=== PATIENT | female | born 1930 | race Caucasian/White ===

== ENCOUNTER 2018-12-02 17:29 | Observation (INO) | payer OTHER ==
[~2018-12-02] VITALS: Ht 154.9 cm; Wt 85.0 kg
[~2018-12-02 17:29] MED LIST: ATEN25 PO; DILT300 PO; FOLI1 PO; LEVSOD25 PO; NITR.4SL; [UNRECOGNIZED DRUG - REMARK]
[2018-12-02 19:07] LABS: BASOPHILS ABSOLUTE AUTO 0.06 K/mm3 (0.00-0.23); BASOPHILS PERCENT AUTO 1 % (0-2); EOSINOPHILS ABSOLUTE AUTO 0.09 K/mm3 (0.00-0.68); EOSINOPHILS PERCENT AUTO 1 % (0-6); Hematocrit 39.7 % (33.0-51.0); Hemoglobin 13.6 g/dL (11.5-16.0); IMMATURE GRAN ABSOLUTE AUTO 0.05 K/mm3 (0.00-0.10); IMMATURE GRAN PERCENT AUTO 1 % (0-1); LYMPHOCYTES ABSOLUTE AUTO 2.64 K/mm3 (0.84-5.20); LYMPHOCYTES PERCENT AUTO 35 % (21-46); MONOCYTES ABSOLUTE AUTO 0.56 K/mm3 (0.16-1.47); MONOCYTES PERCENT AUTO 7 % (4-13); Mean Corpuscular HGB 33.8 pg (26.0-34.0); Mean Corpuscular HGB Conc 34.3 g/dL (31.5-36.5); Mean Corpuscular Volume 99 fL (80-100); Mean Platelet Volume 9.9 fL (9.1-12.4); NEUTROPHILS ABSOLUTE AUTO 4.14 K/mm3 (1.96-9.15); NEUTROPHILS PERCENT AUTO 55 % (41-73); Platelet Count 188 K/mm3 (150-400); RDW Coefficient Variation 12.2 % (11.7-14.2); RDW Standard Deviation 44.1 fL (35.1-46.3); Red Blood Cell Count 4.02 M/mm3 (3.80-5.20); White Blood Cell Count 7.54 K/mm3 (4.00-11.30)
[2018-12-02 19:31] LABS: Alanine Aminotransfer (ALT/SGP 43 U/L (12-78); Albumin, Blood 3.9 g/dL (3.4-5.0); Albumin/Globulin Ratio 1.3 (0.8-1.8); Alk Phos 59 U/L (50-136); Anion Gap 7 mmol/L (6-16); Aspartate Aminotrans (AST/SGOT 27 U/L (12-37); Bilirubin, Total 0.5 mg/dL (0.1-1.0); Blood Urea Nitrogen 17 mg/dL (8-24); Bun/Creatinine Ratio 21.5 (12.0-20.0); CO2, Blood 22 mmol/L (21-32); Calcium, Blood 9.7 mg/dL (8.5-10.1); Chloride, Blood 103 mmol/L (98-108); Creatinine, Blood 0.79 mg/dL (0.40-1.00); Glomerular Filtration Rate >60 (60-); Glucose, Blood 108 mg/dL (70-99); Potassium, Blood 4.2 mmol/L (3.5-5.5); Sodium, Blood 132 mmol/L (136-145); Total Protein, Blood 6.9 g/dL (6.4-8.2); Troponin I <0.015 ng/mL (0.000-0.040)
[2018-12-02 21:51] LABS: Source, Urine Clean Catch
[2018-12-02 21:55] LABS: Appearance, Urine Clear (Clear); Bilirubin, Urine Neg (Neg); Blood, Urine Neg (Neg); Color, Urine Yellow (P-Yellow); Glucose Qualitative, Urine Neg (Neg); Ketones, Urine Neg (Neg); Leukocyte Esterase, Urine 2+ (Neg); Nitrite, Urine Neg (Neg); Protein, Urine Neg (Neg); Specific Gravity, Urine 1.005 (1.003-1.022); Urobilinogen, Urine NORM (Normal)
[2018-12-02 22:03] LABS: Bacteria Few /hpf; Red Blood Cells, Urine 0-2 /hpf (0-2); Squamous Epithelial Cells Few /hpf (Few)
[2018-12-02] MEDS ORDERED: CAND4 PO (22:45)
--- NOTE | 2018-12-03 07:16 | NUR ---
a+o, call light in reach, saline locked, not dizzy, walking rounds completed with returning staff
[2018-12-03] MEDS ORDERED: LEVSOD50 PO (10:18)
[2018-12-03] MEDS ORDERED: CRANBERRY500 M1 PO (10:19)
[2018-12-03] MEDS ORDERED: Cardizem LA360 MG PO (10:19)
[2018-12-03] MEDS ORDERED: ASCO500 PO (10:20)
[2018-12-03] MEDS ORDERED: Coenzyme Q10100 M1 PO (10:20)
[2018-12-03] MEDS ORDERED: TOCO1000 PO (10:21)
[2018-12-03] MEDS ORDERED: FLAX PO (10:21)
[2018-12-03] MEDS ORDERED: Lecithin-191200 MG PO (10:22)
[2018-12-03] MEDS ORDERED: Vitamin B-Comp1 EACH PO (10:23)
[2018-12-03] MEDS ORDERED: Omega 3 1,0001 EACH PO (10:25)
--- NOTE | 2018-12-03 12:22 | NUR ---
PT REQUESTING TO STAY "ONE MORE DAY" STATES "I STILL FEEL WEAK AND TIRED AND DON'T WANT TO GO HOME TOO SOON". ALL ABOVE REPORTED TO DR. LEON.
--- NOTE | 2018-12-03 18:12 | NUR ---
DISCHARGE NOTE WAS SET TO DISCHARGE TODAY BUT PT REFUSED STATING "I JUST DON'T FEEL WELL ENOUGH YET". DIZZINESS NOW RESOLVED. EATING AND DRINKING WELL. STANDBY ASSIST IN ROOM. CONTINENT. A AND [facility]. GONZALEZ POWELL PT'S FRIEND IS AVAILABLE TO DRIVE PT HOME HE CAN BE CONTACTED AT [phone]. NO OTHER C/O THIS SHIFT.
--- NOTE | 2018-12-04 07:15 | NUR ---
a+o, room air, no IV access, call light in reach walking rounds completed with day nurse
[2018-12-04] MEDS ORDERED: Atacand8 MG PO (11:37)
--- NOTE | 2018-12-04 13:25 | NUR ---
DISCHARGE SUMMARY PT A&Ox4. CALM AND COOPERATIVE WITH CARE. PT RESTING IN BED DURING SHIFT. UP IN CHAIR OR SIDE OF BED FOR MEALS. PT DENIES PAIN, SOB AND N/V. PT DENIES DIZZINESS AND LIGHTHEADEDNESS. MEDICATED WITH SCHEDULED ANTIVERT, PER EMAR. BP ELEVATED, MEDICATED PER EMAR. OTHER VSS. NO OTHER ACUTE CHANGES NOTED DURING SHIFT. PT EDUCATED ON DISCHARGE SUMMARY, MEDICATIONS AND FOLLOW UP APPOINTMENT FOR November. PRESCRIPTIONS FAXED TO [facility] PER PT REQUEST. PT LEFT VIA WHEELCHAIR AT 1303. PT STABLE UPON DISCHARGE.
== END 2018-12-04 13:04 | disposition home or self-care (01) ==
LOC: ER 17:29 → MEDS 17:30 → ENPENDDIS 12-04 11:18 → MEDS 12-04 13:04
PROVIDERS: Emergency Medicine; ADMIT Internal Medicine
DX: R42 Dizziness and giddiness (principal); I10 Essential (primary) hypertension; I42.1 Obstructive hypertrophic cardiomyopathy; E03.9 Hypothyroidism, unspecified; Z88.2 Allergy status to sulfonamides; Z88.5 Allergy status to narcotic agent; Z88.8 Allergy status to other drugs, medicaments and biological substances
CPT/HCPCS: 36415; 71045; 80053; 81001; 84443; 84484; 85025; 87086; 93005; 93010; 93306; 96361; 96374; 96375; 96376; 97161; 97530; 99285-25; G0378; J2405; J2550; J7030

== ENCOUNTER → 2019-01-04 | Outpatient (CLI) | payer OTHER ==
[~2019-01-04] MED LIST changes: +ASCO500 PO; +Atacand8 MG PO; +CAND4 PO; +CRANBERRY500 M1 PO; +Cardizem LA360 MG PO; +Coenzyme Q10100 M1 PO; +FLAX PO; +LEVSOD50 PO; +Lecithin-191200 MG PO; +Omega 3 1,0001 EACH PO; +TOCO1000 PO; +Vitamin B-Comp1 EACH PO
== END ==
LOC: LAB EV 12:09 → LAB SHORT 12:09
DX: L03.119 Cellulitis of unspecified part of limb (principal)
CPT/HCPCS: 87070; 87205

== ENCOUNTER 2019-05-16 21:31 | Emergency (ER) | payer OTHER ==
[~2019-05-16] VITALS: Ht 154.9 cm; Wt 77.1 kg
[2019-05-16 22:07] LABS: BASOPHILS ABSOLUTE AUTO 0.04 K/mm3 (0.00-0.23); BASOPHILS PERCENT AUTO 0 % (0-2); EOSINOPHILS ABSOLUTE AUTO 0.17 K/mm3 (0.00-0.68); EOSINOPHILS PERCENT AUTO 2 % (0-6); Hematocrit 34.4 % (33.0-51.0); Hemoglobin 11.4 g/dL (11.5-16.0); IMMATURE GRAN ABSOLUTE AUTO 0.04 K/mm3 (0.00-0.10); IMMATURE GRAN PERCENT AUTO 0 % (0-1); LYMPHOCYTES ABSOLUTE AUTO 3.78 K/mm3 (0.84-5.20); LYMPHOCYTES PERCENT AUTO 42 % (21-46); MONOCYTES ABSOLUTE AUTO 0.89 K/mm3 (0.16-1.47); MONOCYTES PERCENT AUTO 10 % (4-13); Mean Corpuscular HGB 33.4 pg (26.0-34.0); Mean Corpuscular HGB Conc 33.1 g/dL (31.5-36.5); Mean Corpuscular Volume 101 fL (80-100); Mean Platelet Volume 10.1 fL (9.1-12.4); NEUTROPHILS ABSOLUTE AUTO 4.16 K/mm3 (1.96-9.15); NEUTROPHILS PERCENT AUTO 46 % (41-73); Platelet Count 180 K/mm3 (150-400); RDW Coefficient Variation 12.6 % (11.7-14.2); RDW Standard Deviation 46.6 fL (35.1-46.3); Red Blood Cell Count 3.41 M/mm3 (3.80-5.20); White Blood Cell Count 9.08 K/mm3 (4.00-11.30)
[2019-05-16 22:25] LABS: Anion Gap 5 mmol/L (6-16); Blood Urea Nitrogen 17 mg/dL (8-24); CO2, Blood 26 mmol/L (21-32); Calcium, Blood 9.2 mg/dL (8.5-10.1); Chloride, Blood 113 mmol/L (98-108); Creatinine, Blood 0.77 mg/dL (0.40-1.00); Glomerular Filtration Rate >60 (60-); Glucose, Blood 93 mg/dL (70-99); Potassium, Blood 3.8 mmol/L (3.5-5.5); Sodium, Blood 144 mmol/L (136-145); Troponin I <0.015 ng/mL (0.000-0.040)
== END 2019-05-17 01:15 | disposition home or self-care (01) ==
LOC: ER 21:31
PROVIDERS: Physician Assistant
DX: R42 Dizziness and giddiness (principal); R55 Syncope and collapse; I11.0 Hypertensive heart disease with heart failure; I50.9 Heart failure, unspecified; E03.9 Hypothyroidism, unspecified; Z88.2 Allergy status to sulfonamides; Z88.8 Allergy status to other drugs, medicaments and biological substances; Z88.5 Allergy status to narcotic agent; Z79.899 Other long term (current) drug therapy
CPT/HCPCS: 36415; 71046; 80048; 83880; 84484; 85025; 93005; 93010; 99283-25

== ENCOUNTER → 2019-09-29 | Outpatient (CLI) | payer OTHER | END | disposition home or self-care (01) | LOC: LAB 06:00 → LAB SHORT 06:00 → LAB FUT 09-27 14:15 | DX: R19.7 Diarrhea, unspecified (principal) | CPT/HCPCS: 87493 ==